=== PATIENT | female | born 1980 | race African-American/Black ===

== ENCOUNTER 2018-04-02 09:47 | Emergency (ER) | payer OTHER ==
[2018-04-02 10:04] VITALS: BP 135/65; PULSE 120; TEMP 99.9; BMI 27.1
[2018-04-02] MEDS ORDERED: ACETAMINOPHEN 500 MG TABLET (FP) PO ONE (10:24)
[2018-04-02] MEDS ORDERED: ACETAMINOPHEN 500 MG TABLET (FP) ONE (10:31)
--- NOTE | 2018-04-02 10:34 | PDOC ---
History of Present Illness - General Chief Complaint: Sore Throat Stated Complaint: COLD SYMPTOMS Time Seen by Provider: 04/02/18 10:19 History Source: Patient Exam Limitations: Clinical Condition - History of Present Illness Initial Comments: 04/02/18 10:25 Patient with no significant past medical history present with complaint of 2 day history of sore throat, nasal congestion, headache, body aches, fever and chills. Patient also reported diarrhea for same period. Patient denies vomiting or nausea. Patient denies any other symptoms. Patient reported taking DayQuil and NyQuil [id number] with no improvement in symptoms. Timing/Duration: other (2 DAYS) Past History - Past Medical History Allergies/Adverse Reactions: Allergies Allergy/AdvReac Type Severity Reaction Status Date / Time No Known Allergies Allergy Verified 02/24/16 14:04 Home Medications: Ambulatory Orders Clindamycin [Cleocin -] 300 mg PO TID #21 capsule 02/24/16 Amox-Tr/K Cl [Augmentin - 875Mg Tablet] 1 tab PO BID #14 tablet 04/02/18 Benzonatate [Tessalon Pearls -] 100 mg PO TID PRN #21 capsule 04/02/18 Ipratropium [place] 2 spray NS BID PRN #1 spray 04/02/18 Loratadine 10 mg PO DAILY #10 capsule 04/02/18 Anemia: Yes COPD: No - Immunization History Immunization Up to Date: Yes - Suicide/Smoking/Psychosocial Hx Smoking History: Never smoked Have you smoked in the past 12 months: No Number of Cigarettes Smoked Daily: 7 Information on smoking cessation initiated: No Hx Alcohol Use: No Drug/Substance Use Hx: No Substance Use Type: None Review of Systems - Review of Systems Able to Perform ROS?: Yes Is the patient limited Latvian proficient: No Constitutional: Yes: Chills, Fever, Malaise HEENTM: Yes: Symptoms Reported, See HPI, Nose Congestion, Throat Pain. No: Eye Pain, Blurred Vision, Tearing, Recent change in vision, Double Vision, Cataracts , Ear Pain, Ocular Prothesis, Ear Discharge, Nose Pain, Tinnitus, Nose Bleeding , Hearing Loss, Throat Swelling, Mouth Pain, Dental Problems, Difficulty Swallowing, Mouth Swelling, Other Respiratory: No: Symptoms reported, See HPI, Cough, Orthopnea, Shortness of Breath, SOB with Exertion, SOB at Rest, Stridor, Wheezing, Productive cough, Hemoptysis, Other Cardiac (ROS): No: Symptoms Reported, See HPI, Chest Pain, Edema, Irregular Heart Rate, Lightheadedness, Palpitations, Syncope, Chest Tightness, Other ABD/GI: Yes: Diarrhea. No: Constipated, Nausea, Vomiting, Abdominal cramping Neurological: Yes: Headache. No: Numbness, Paresthesia, Seizure, Dizziness All Other Systems: Reviewed and Negative *Physical Exam - Vital Signs Last Vital Signs Temp Pulse Resp BP Pulse Ox 99.9 F H 120 H 16 135/65 100 04/02/18 09:47 04/02/18 09:47 04/02/18 09:47 04/02/18 09:47 04/02/18 09:47 - Physical Exam Comments: 04/02/18 10:34 GENERAL: Well developed, well nourished. Awake and alert. No acute distress. HEENT: Normocephalic, atraumatic. PERRLA, EOMI. No conjunctival pallor. Sclera are non-icteric. Moist mucous membranes. Oropharynx is clear. NECK: Supple. Full ROM. CARDIOVASCULAR: Regular rate and rhythm. No murmurs, rubs, or gallops. Distal pulses are 2+ and symmetric. PULMONARY: No evidence of respiratory distress. Lungs clear to auscultation bilaterally. No wheezing, rales or rhonchi. ABDOMINAL: Soft. Non-tender. Non-distended. No rebound or guarding. No organomegaly. Normoactive bowel sounds. MUSCULOSKELETAL Normal range of motion at all joints. SKIN: Warm and dry. Normal capillary refill. No rashes. NEUROLOGICAL: Alert, awake, appropriate. Gait is normal without ataxia. PSYCHIATRIC: Cooperative. Good eye contact. Appropriate mood General Appearance: Yes: Nourished, Appropriately Dressed. No: Apparent Distress Moderate Sedation - Procedure Monitoring Vital Signs: Procedure Monitoring Vital Signs Temperature 99.9 F H 04/02/18 09:47 Pulse Rate 120 H 04/02/18 09:47 Respiratory Rate 16 04/02/18 09:47 Blood Pressure 135/65 04/02/18 09:47 O2 Sat by Pulse Oximetry (%) 100 04/02/18 09:47 Medical Decision Making - Medical Decision Making 04/02/18 10:35 Patient with no significant past medical history presented with complaint of 2 day history of URI symptoms with fever, chills and diarrhea not responding to owzs-oqj-qtqnwmo medications. Exam significant for temp of 99.9F orally otherwise unremarkable exam. Lungs clear to auscultation bilateral. Normal cardio exam. Rapid strep and rapid flu tests ordered. Tylenol 1 g by mouth ordered for headache and low-grade temp. 04/02/18 11:12 Rapid strep positive. Rapid flu negative. Patient is stable for outpatient treatment with Augmentin for strep pharyngitis and Tessalon Perles for cough with nasal spray for nasal congestion with ENT follow-up was needed. *DC/Admit/Observation/Transfer Diagnosis at time of Disposition: Strep pharyngitis URI (upper respiratory infection) Qualifiers: URI type: acute pharyngitis Pharyngitis/tonsillitis etiology: streptococcus Qualified Code(s): J02.0 - Streptococcal pharyngitis Fever Qualifiers: Fever type: unspecified Qualified Code(s): R50.9 - Fever, unspecified - Discharge Dispostion Disposition: HOME Condition at time of disposition: Stable Decision to Admit order: No - Prescriptions Prescriptions: Amox-Tr/K Cl [Augmentin - 875Mg Tablet] 1 tab PO BID #14 tablet Benzonatate [Tessalon Pearls -] 100 mg PO TID PRN #21 capsule PRN Reason: Cough Ipratropium [place] 2 spray NS BID PRN #1 spray PRN Reason: nasal congestion Loratadine 10 mg PO DAILY #10 capsule - Referrals Referrals: Justin Vazquez MD [Staff Physician] - - Patient Instructions Printed Discharge Instructions: Throat Culture Additional Instructions: strep test was positive. Flu test was negative. Take medication as prescribed. Increase fluid intake. Follow-up referred ENT if pain persists for more than 5 days. - Post Discharge Activity
== END 2018-04-02 11:21 | disposition home or self-care (01) ==
LOC: JERFT 09:47
DX: J02.0 Streptococcal pharyngitis (principal); B95.0 Streptococcus, group A, as the cause of diseases classified elsewhere
CPT/HCPCS: 87804; 87880; 99281-25

== ENCOUNTER 2019-11-22 15:51 | Emergency (ER) | payer OTHER ==
[2019-11-22 16:01] VITALS: BP 120/75; PULSE 86; TEMP 98.2; BMI 24.5
[2019-11-22] MEDS ORDERED: TETRACAINE 0.5% HCL 0.6ML DROPPER.BOTTLE OS ONE (16:12)
[2019-11-22] MEDS ORDERED: FLUORESCEIN NA 1 EA STRIP OS ONE (16:12)
--- OUTSIDE RECORDS SUMMARY | 2019-11-22 16:13 | XMS ---
:1980 Demographics Address [address] [place] [address] [place] Preferred Language Chinese Marital Status Not or Mosque Affiliation BA Race BL Ethnic Group Not or Author Organization [facility] Support Name Relationship Address Phone [employer] Unavailable [address] [place] [address] UNEMPLOYED Unavailable Un[place] [address] JESSICA LIMON AU [address] [place] [address] MIROSLAVA LIMON MOTHER [address] [place] [address] MIROSLAVA LIMON Mother [address] [place] [address] Re-disclosure Warning The records that you are about to access may contain information from federally- assisted alcohol or drug abuse programs. If such information is present, then the following federally mandated warning applies: This information has been disclosed to you from records protected by federal confidentiality rules (42 CFR part 2). The federal rules prohibit you from making any further disclosure of this information unless further disclosure is expressly permitted by the written consent of the person to whom it pertains or as otherwise permitted by 42 CFR part 2. A general authorization for the release of medical or other information is NOT sufficient for this purpose. The Federal rules restrict any use of the information to criminally investigate or prosecute any alcohol or drug abuse patient.The records that you are about to access may contain highly sensitive health information, the redisclosure of which is protected by Article 27-F of the [place] State Public Health law. If you continue you may haveaccess to information: Regarding HIV / AIDS; Provided by facilities licensed or operated by the [facility] Office of Mental Health; or Provided by the [facility] Office for People With Developmental Disabilities. If such information is present, then the following [facility] mandated warning applies: This information has been disclosed to you from confidential records which are protected by state law. State law prohibits you from making any further disclosure of this information without the specific written consent of the person to whom it pertains, or as otherwise permitted by law. Any unauthorized further disclosure in violation of state law may result in a fine or skilled nursing sentence or both. A general authorization for the release of medical or other information is NOT sufficient authorization for further disclosure. Encounters Encounter Providers Location Date Indications Data Source(s ) Emergency H 11/26/2018 06:45:00 [facility] EDT - 11/26/2018 Cent[facility] 10:45:00 PM EDT Patient discharged. Insurance Providers Payer name Policy type Policy ID Covered Covered republican's Policy P dori / Coverage republican ID relationship to Lin Inf ormation type lin AFF[employer]ITY [id number] SP [id number] [employer] O [id number] 01 [id number] [employer]AN Problems, Conditions, and Diagnoses Code Display Name Description Problem Type Effective Dates Data Source(s) Z53.21 Procedure and PROC/TRTMT NOT Diagnosis 11/26/2018 [facility] treatment not CRD OUT D/T PT [facility] 06:45:00 PM EDT Medical Center carried out due to BEF SEEN BY [facility] patient leaving CARE PROV prior to being seen by health care provider R41.82 Altered mental ALTERED MENTAL Diagnosis 11/26/2018 [facility] status, STATUS, 06:45:00 PM EDT Medical C enter unspecified UNSPECIFIED Social History Code Duration Value Status Description Data Source(s ) Smoking 11/26/2018 Occasional Smoker completed Occasional Smoker [facility] 07:42:00 PM EDT Medical C enter Smoking 11/26/2018 Occasional Smoker completed Occasional Smoker [facility] 07:15:00 PM EDT Medical C enter Smoking 11/26/2018 Occasional Smoker completed Occasional Smoker [facility] 06:57:00 PM EDT Medical C enter Vital Signs ID Date Data Source UNK Name Value Range Interpretation Code Description Data Source(s) Body weight 70.130855 kg 70.790339 kg [facility] Body temperature 36.065049 36.453865 [facility] Respiratory rate 17 /min 17 /min [facility] Oxygen saturation 99 % 99 % [facility] Yoanna miller in Arterial blood Medical Center by Pulse oximetry Heart rate 112 /min 112 /min [facility] Body height 162.028633 162.760497 cm [facility] Diastolic blood 88 mm[Hg] 88 mm[Hg] [facility] Systolic blood 146 mm[Hg] 146 mm[Hg] [facility] Body mass index 26.4 kg/m2 26.4 kg/m2 [facility] (BMI) [Ratio] [facility] Body weight 58.166314 kg 58.195329 kg [facility] Body temperature 36.868192 36.663708 [facility] Respiratory rate 21 /min 21 /min [facility] Oxygen saturation 95 % 95 % [facility] Yoanna miller in Arterial blood [facility] by Pulse oximetry Heart rate 132 /min 132 /min [facility] Body height 157.068424 157.937819 cm [facility] Diastolic blood 102 mm[Hg] 102 mm[Hg] [facility] Systolic blood 155 mm[Hg] 155 mm[Hg] [facility] Body mass index 23.7 kg/m2 23.7 kg/m2 [facility] Peter [facility] (BMI) [Ratio] Medical Danika [facility]
[2019-11-22] MEDS ORDERED: FLUORESCEIN NA 1 EA STRIP ONE (16:22)
--- NOTE | 2019-11-22 16:28 | PDOC ---
History of Present Illness - General Chief Complaint: Eye Problem Stated Complaint: L/EYE PROBLEM Time Seen by Provider: 11/22/19 16:04 History Source: Patient Exam Limitations: No Limitations - History of Present Illness Initial Comments: 11/22/19 16:14 HISTORY OF PRESENT ILLNESS: 39-year-old woman who presents emergency department for evaluation of left shoulder tightness for 1 week and left eye erythema and tearing for 1 day. She reports she wears contact lenses and had some irritation to her eye causing her to remove her contact lenses yesterday. She reports having some mild blurry vision related to the tearing but clears up when she blinks. She denies any foreign body sensation in her eyes. Patient has been applying vgdl-dlq-kqxxbog remedies to her left shoulder including icy hot and Aspercreme with minimal relief of her symptoms. No recent travel or sick contacts. PAST MEDICAL HISTORY: Denies past medical history SURGICAL HISTORY: Denies ALLERGIES: No known drug allergies REVIEW OF SYSTEMS General/Constitutional: Denies fever or chills. Denies weakness, weight change. HEENT: See HPI Cardiovascular: Denies chest pain or shortness of breath. Respiratory: Denies cough, wheezing, or hemoptysis. Gastrointestinal: Denies nausea, vomiting, diarrhea or constipation. Denies rectal bleeding. Genitourinary: Denies dysuria, frequency, or change in urination. Musculoskeletal: See HPI Skin and breasts: Denies rash or easy bruising. Neurologic: Denies headache, vertigo, loss of consciousness, or loss of sensation. Psychiatric: Denies depression or anxiety. Endocrine: Denies increased thirst. Denies abnormal weight change. Hematologic/Lymphatic: Denies anemia, easy bleeding, or history of blood clots. Allergic/Immunologic: Denies hives or skin allergy. Denies latex allergy. PHYSICAL EXAM General Appearance: Well-appearing, appropriately dressed. No apparent distress, no intoxication. HEENT: EOMI, PERRLA, normal ENT inspection, normal voice, TMs normal, pharynx normal. No conjunctival pallor. No photophobia, scleral icterus. Neck: Supple. Trachea midline. No tenderness, rigidity, carotid bruit, stridor, lymphadenopathy, or thyromegaly. Musculoskeletal/Extremities: Normal inspection. FROM of all extremities, normal capillary refill. Pelvis Stable. No CVA tenderness. No tenderness to extremities, pedal edema, swelling, erythema or deformity. Palpable muscle spasm present to the left trapezius muscle. 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 Fully oriented, alert. Appropriate mood/affect. Motor strength 5/5. No appreciable EOM palsy, facial droop or sensory deficit. Past History - Medical History Allergies/Adverse Reactions: Allergies Allergy/AdvReac Type Severity Reaction Status Date / Time No Known Allergies Allergy Verified 11/22/19 15:55 Home Medications: Ambulatory Orders Clindamycin [Cleocin -] 300 mg PO TID #21 capsule 02/24/16 Amox-Tr/K Cl [Augmentin - 875Mg Tablet] 1 tab PO BID #14 tablet 04/02/18 Benzonatate [Tessalon Pearls -] 100 mg PO TID PRN #21 capsule 04/02/18 Ipratropium [place] 2 spray NS BID PRN #1 spray 04/02/18 Loratadine 10 mg PO DAILY #10 capsule 04/02/18 Clindamycin [Cleocin -] 300 mg PO Q6HPO #28 capsule 08/10/19 Ibuprofen [Motrin -] 600 mg PO QID #28 tablet 08/10/19 Methocarbamol [Robaxin -] 1,000 mg PO TID PRN #42 tablet 11/22/19 Moxifloxacin HCl [Moxifloxacin] 1 drop OS TID #1 bottle 11/22/19 Anemia: Yes COPD: No - Reproductive History Is Patient Now?: No - Immunization History Immunization Up to Date: Yes - Psycho-Social/Smoking History Smoking History: Current every day smoker Have you smoked in the past 12 months: No Number of Cigarettes Smoked Daily: 5 Information on smoking cessation initiated: Yes - Substance Abuse Hx (Audit-C & DAST Scrn) How often the patient has a drink containing alcohol: Never Score: In Men: 4 or > Positive; In Women: 3 or > Positive: 0 Screen Result (Pos requires Nsg. Audit-10AR): Negative In the last yr the pt used illegal drug/Rx for NonMed reason: No Score: Yes response is considered Positive: 0 Screen Result (Positive result requires Nsg. DAST-10): Negative *Physical Exam - Vital Signs Last Vital Signs Temp Pulse Resp BP Pulse Ox 98.2 F 86 16 120/75 100 11/22/19 15:55 11/22/19 15:55 11/22/19 15:55 11/22/19 15:55 11/22/19 15:55 Medical Decision Making - Medical Decision Making 11/22/19 16:16 A/P: 39-year-old woman with left trapezius muscle spasm and left eye irritation EYE EXAMINATION: Visual acuity: 20/20 in the left eye, 20/20 in the right eye, near, uncorrected The lid and lashes are normal. Extraocular movements are intact. The conjunctiva is clear without erythema, injection, or discharge The corneal surface is normal post tetracaine and fluorescein. There is no corneal abrasion or foreign body. There is no abnormal fluorescein uptake. The pupils are equal, round and reactive to light. The fundus shows normal vessels and normal discs. Conjunctivitis of the left eye as well as muscle spasm to the left trapezius Prescription sent to patient's preferred pharmacy I discussed the physical exam findings, ancillary test results and final diagnos es with the patient. I answered all of the patient's questions. The patient was satisfied with the care received and felt comfortable with the discharge plan and treatment plan. The patient will call their primary care physician within 24 hours to arrange follow-up and will return to the Emergency Department with any new, persistent or worsening symptoms. Portions of this note have been documented using voice recognition software. As a result, errors may occur in the conductor symphonic orchestra process. Effort has been made to correct all grammatical and conductor symphonic orchestra error, but some may have been missed which may produce sporadic inaccurate conductor symphonic orchestra or nonsensical phrases. Discharge - Discharge Information Problems reviewed: Yes Clinical Impression/Diagnosis: Trapezius muscle spasm Conjunctivitis Qualifiers: Conjunctivitis type: unspecified Laterality: left Qualified Code(s): H10.9 - Unspecified conjunctivitis Condition: Stable Disposition: HOME - Admission No - Additional Discharge Information Prescriptions: Moxifloxacin HCl [Moxifloxacin] 1 drop OS TID #1 bottle Methocarbamol [Robaxin -] 1,000 mg PO TID PRN #42 tablet PRN Reason: Muscle Spasms - Follow up/Referral Referrals: Carl Olguin MD [Staff Physician] - - Patient Discharge Instructions Additional Instructions: Rest, avoid rubbing eyes Wash hands frequently as this is very contagious Wash hands, use eye drops as directed, wash hands after use Moxifloxacin drops to affected eye 3 times a day for 7 days Avoid contact with others until redness and discharge is gone from eyes. Followup with ophthalmology or private physician as needed Rest, no heavy lifting or exercise until pain is resolved Hot soaks to neck and low back as often as possible/hot showers or Jacuzzis No massage or therapy until spasm is gone Continue naproxen 2-220 mg tablets every 12 hours for the next 3 days then as needed for pain and swelling Robaxin 1000mg every 8 hours as needed for spasm If not significant improvement within 24 hours with medication and rest regime, followup with private physician for change in medications and /or therapy. - Post Discharge Activity
[2019-11-22] MEDS ORDERED: NAPROXEN 500 MG TABLET ONE (16:50)
[2019-11-22] MEDS ORDERED: NAPROXEN 500 MG TABLET PO ONE (16:50)
== END 2019-11-22 16:53 | disposition home or self-care (01) ==
LOC: JERFT 15:51
DX: H10.9 Unspecified conjunctivitis (principal); M62.838 Other muscle spasm
CPT/HCPCS: 99283-25

== ENCOUNTER 2022-06-22 20:17 | Emergency (ER) | payer OTHER ==
[2022-06-22 20:27] VITALS: BP 141/92; PULSE 76; RESP 18; TEMP 98.2; BMI 29.8
== END 2022-06-22 23:07 | disposition home or self-care (01) ==
LOC: JERFT 20:17
DX: M25.532 Pain in left wrist (principal); M79.642 Pain in left hand; R52 Pain, unspecified
CPT/HCPCS: 99282-25

== ENCOUNTER 2023-06-10 00:43 | Emergency (ER) | payer OTHER ==
[2023-06-10 00:52] VITALS: BP 125/76; PULSE 105; RESP 18; TEMP 97.6; BMI 27.3
[2023-06-10] MEDS ORDERED: ACETAMINOPHEN 325 MG TABLET (FP) ONE (01:37)
[2023-06-10] MEDS ORDERED: LIDOCAINE 4% PATCH TP ONE (01:37)
[2023-06-10] MEDS: LIDOCAINE 4% PATCH TP ONE (01:39)
[2023-06-10] MEDS: ACETAMINOPHEN 500 MG TABLET (FP) PO ONE (01:39)
[2023-06-10] MEDS ORDERED: DIPHTH,PERTUSS(ACELL),TET 0.5 ML DISP.SYRIN IM ONE (04:08)
[2023-06-10] MEDS: DIPHTH,PERTUSS(ACELL),TET 0.5 ML DISP.SYRIN IM ONE (04:11)
[2023-06-10] MEDS ORDERED: LIDOCAINE PATCH REMOVAL MC SCH (22:00)
== END 2023-06-10 04:37 | disposition home or self-care (01) ==
LOC: JER 00:43
PROC: 3E0234Z Introduction of Serum, Toxoid and Vaccine into Muscle, Percutaneous Approach (ICD-10-PCS; principal; 2023-06-10)
DX: S00.12XA Contusion of left eyelid and periocular area, initial encounter (principal); R51.9 Headache, unspecified; Y04.0XXA Assault by unarmed brawl or fight, initial encounter
CPT/HCPCS: 70450-TC; 70486-TC; 72125-TC; 90471; 90715; 99284-25